=== PATIENT | female | born 2005 | race African-American/Black ===

== ENCOUNTER 2025-03-26 14:40 | Emergency (ER) | payer MEDICAID, OTHER ==
[~2025-03-26] VITALS: Ht 170.2 cm; Wt 98.1 kg
--- NOTE | 2025-03-26 15:18 | ED.PDOC ---
GI ASSESSMENT HPI Comments 19y F with current approximate 17 week who presents to the ED for chief complaint of abdominal pain. Pt states she is currently , , approx 17 weeks , and states she has been having right lower quadrant abdominal pain since yesterday with headache, nausea, vomiting and soft stools. Pt otherwise denies any associated vaginal bleeding or discharge. Pt [facility] and told is viable. Pt otherwise was not able to get OB appt until very recently due to insurance troubles but states insurance problems have been resolved and pt has since been able to get a OB appt that is upcoming. Pt in the ED, has noted BP of 143/86 with otherwise stable vitals including 02 sat of 99% on room air, RR 16, heart rate 90, and temp of 98.7 F. Pt otherwise denies any other symptoms at this time. Chief Complaint: Abdominal Pain Time Seen by MD: 15:17 Primary Care Provider: DENA Barton Notes: Medications, Allergies Allergies: Coded Allergies: NO KNOWN ALLERGIES (Unverified , 12/17/15) Home Meds Active Scripts Doxylamine-Pyridoxine (DICLEGIS) 1 Tab Tab, 1 TAB OR HS PRN, #30 TAB prn nausea/vomiting Prov:ROSEMARY DURON MD 03/26/25 Acetaminophen (Tylenol Extra Strength) 500 Mg Tab, 1000 MG PO Q6HP PRN, #30 TAB Prov:ROSEMARY DURON MD 03/26/25 Information Source: Patient, Significant Other Mode of Arrival: Ambulatory Past Medical History PAST MEDICAL HISTORY: Denies Surgical History: Denies all surgeries [employer] History: Other (Current approximate 17 week ) 1 Para 0 Family History Family History: Reviewed,noncontributory to illness Social History Smoker: Non-Smoker Alcohol: Denies ETOH Use Drugs: Denies Drug Use Lives In: Home All Other Systems: Reviewed and Negative (see HPI) Physical Exam General Appearance: No Apparent Distress HEENT: Other (Pupils and face symmetric. Moist mucous membranes.) Neck: Full Range of Motion, Normal Inspection Respiratory: Lungs Clear, No Accessory Muscle Use, No Respiratory Distress, No rmal Breath Sounds Cardiovascular: No Edema, No JVD, Regular Rate/Rhythm Breast Exam: Deferred Gastrointestinal: RLQ, Soft, Tenderness Genitalia: Deferred Pelvic: Deferred Rectal: Deferred Extremities: Normal inspection, Normal range of motion, Non-tender, No pedal edema Neurologic: Alert (Oriented x4), Normal Affect, Normal Mood, Other (Ambulatory) Cerebellar Function: NOT DONE Reflexes: NOT DONE Skin: Dry, Normal Color, Warm Lymphatic: NOT DONE Was a procedure done? Was a procedure done?: No GI differential Dx Differential Diagnosis: Appendicitis, Cholecystitis, Diverticular disease, Gastroenteritis, UTI, Dehydration, Electrolyte Imbalance, Food Poisoning, Bacterial, Viral, Anemia, Kidney Stone, Other ( related pain, demise, among others) X-Ray, Labs, Meds, VS Vital Signs Date Time Temp Pulse Resp B/P (MAP) Pulse Ox O2 Delivery O2 Flow Rate FiO2 03/26/25 20:47 97.9 81 20 123/73 (90) 99 97.9 03/26/25 14:42 98.7 90 16 143/86 99 98.7 Lab Test 03/26/25 20:26 03/26/25 16:40 Range/Units Urine Color Yellow Yellow Urine Clarity Turbid H Clear Urine pH 5.5 5.0-9.0 Urine Specific [place] 1.030 1.001-1.035 Urine Protein Trace H Negative Urine Ketones 4+ H Negative Urine Blood Negative Negative /uL Urine Nitrite Negative Negative Urine Bilirubin Negative Negative Urine Urobilinogen Normal Negative mg/dL Urine Leukocyte Esterase Negative Negative /uL Urine RBC <1 0 - 4 /hpf Urine Microscopic WBC 3 0-5 /HPF Urine Squamous Epithelial Cells Mod <5 /hpf Urine Bacteria None seen None Seen /hpf Urine Mucus Few None Seen Urine Glucose Normal Normal mg/dL White Blood Count 7.1 4.4-10.8 10^3/uL Red Blood Count 4.20 4.0-5.20 10^6/uL Hemoglobin 12.1 L 12.2-16.2 g/dL Hematocrit 36.6 36.0-46.0 % Mean Corpuscular Volume 87.2 80.0-100.0 fL Mean Corpuscular Hemoglobin 28.9 28.0-32.0 pg Mean Corpuscular Hemoglobin Concent 33.1 32.0-36.0 g/dL Red Cell Distribution Width 13.6 11.8-14.3 % Platelet Count 248 140-450 10^3/uL Mean Platelet Volume 8.4 6.9-10.8 fL Neutrophils (%) (Auto) 68.5 37.0-80.0 % Lymphocytes (%) (Auto) 21.3 10.0-50.0 % Monocytes (%) (Auto) 9.5 0.0-12.0 % Eosinophils (%) (Auto) 0.4 0.0-7.0 % Basophils (%) (Auto) 0.3 0.0-2.0 % Neutrophils # (Auto) 4.9 1.6-8.6 10 ^3/uL Lymphocytes # (Auto) 1.5 0.4-5.4 10 ^3/uL Monocytes # (Auto) 0.7 0-1.3 10 ^3/uL Eosinophils # (Auto) 0 0-0.8 10 ^3/uL Basophils # (Auto) 0 0-0.2 10 ^3/uL Nucleated Red Blood Cells 0.1 % Sodium Level 137 136-145 mmol/L Potassium Level 4.1 3.5-5.1 mmol/L Chloride Level 104 98-107 mmol/L Carbon Dioxide Level 23 20-31 mmol/L Anion Gap 10 5-15 Blood Urea Nitrogen 11 9-23 mg/dL Creatinine 0.56 0.550-1.02 mg/dL Glomerular Filtration Rate Calc 133 >90 mL/min BUN/Creatinine Ratio 19.6 10.0-20.0 Serum Glucose 79 74-106 mg/dL Lactic Acid Level 0.9 0.4-2.0 mmol/L Calcium Level 8.7 8.7-10.4 mg/dL Beta HCG, Quantitative 39663.4 H 1.5-4.2 mIU/mL [place] [address] Ph: [phone] DIAGNOSTIC IMAGING Diagnostic Imaging Report : [id number] Signed PATIENT: CHOLO RENEE ACCT: [id number] UNIT: [id number] : 2005 LOC: ER ROOM / BED: / AGE / SEX: 19 / F ADM STATUS: REG ER SERVICE 2068 ORDERING PHYSICIAN: ROSEMARY DURON MD PROCEDURE(s): RTLQD - RIGHT LOWER QUAD REASON: right LOWER quadrant pain eval for appy ORDER NUMBER(s): [id number], ACCESSION NUMBER(s): [id number] INDICATION: right LOWER quadrant pain eval for appy TECHNIQUE: Graded compression technique along with Multiple real-time sonographic images were obtained for evaluation of the right lower quadrant. FINDINGS: The appendix was not visualized. No free fluid or lymph nodes are seen on this exam. IMPRESSION: 1.Nonvisualization of the appendix, thus cannot exclude appendicitis. ATED BY: DYLAN MAHAN MD DICTATED DATE/TIME: 03/26/251921 SIGNED BY: DYLAN MAHAN MD SIGNED DATE/TIME: 03/26/251921 CC: [place] [address] Ph: [phone] DIAGNOSTIC IMAGING Diagnostic Imaging Report : [id number] Signed PATIENT: CHOLO RENEE ACCT: [id number] UNIT: [id number] : 2005 LOC: ER ROOM / BED: / AGE / SEX: 19 / F ADM STATUS: REG ER SERVICE 1528 ORDERING PHYSICIAN: ROSEMARY DURON MD PROCEDURE(s): ABDL - ABDOMEN LIMITED REASON: RLQ pain, 17 wk preg, n/v/d ORDER NUMBER(s): [id number], ACCESSION NUMBER(s): [id number] ULTRASOUND ABDOMEN, LIMITED RIGHT UPPER QUADRANT: REASON FOR EXAM: RLQ pain, 17 wk preg, n/v/d TECHNIQUE: Real-time sector scans in the transverse and longitudinal planes were obtained through the right upper quadrant of the abdomen. FINDINGS: The liver is of normal size and contour. There is hepatopetal flow in the portal vein. There is no intrahepatic nor extrahepatic biliary ductal dilatation. The common bile duct measures 5.9 mm. No gallstones or sludge are identified. There is no gallbladder wall thickening nor pericholecystic fluid. There is no sonographic Nathan's sign. The visualized portion of the pancreas is unremarkable. The right kidney measures 9.6 cm. No hydronephrosis or nephrolithiasis is identified. There is no evidence of right renal mass or cyst. The visualized portions of the abdominal aorta demonstrate no evidence of aneurysmal dilatation. The visualized inferior vena cava is unremarkable. There is no free fluid identified in the right upper quadrant. IMPRESSION: Unremarkable right upper quadrant abdominal ultrasound. ATED BY: SANCHEZ SEARS MD DICTATED DATE/TIME: 03/26/251620 SIGNED BY: SANCHEZ SEARS MD SIGNED DATE/TIME: 03/26/251620 CC: [place] [address] Ph: [phone] DIAGNOSTIC IMAGING Diagnostic Imaging Report : [id number] Signed PATIENT: CHOLO RENEE ACCT: [id number] UNIT: [id number] : 2005 LOC: ER ROOM / BED: / AGE / SEX: 19 / F ADM STATUS: REG ER SERVICE 1528 ORDERING PHYSICIAN: ROSEMARY DURON MD PROCEDURE(s): OBUS - OB ULTRASOUND COMP GTR 14 WKS REASON: RLQ pain, 17 wk preg ORDER NUMBER(s): [id number], ACCESSION NUMBER(s): [id number] SECON[facility] TRIME[facility] OBSTETRICAL ULTRASOUND HISTORY: RLQ pain, 17 wk preg. HAYDEE 08/28/2025. Gestational age by HAYDEE 17 weeks 6 days. . Abdominal pain. Right lower quadrant pain. COMPARISON: None TECHNIQUE: Transabdominal imaging of the pelvis. FINDINGS: DATING: Ultrasound (based on AC, BPD, femur, HC): 18 weeks + 0 days. HAYDEE: 08/27/2025 : [place] . MATERNAL STRUCTURES: Uterus: Unremarkable. Cervix: 3.0 cm closed without funneling Right ovary: Not seen Left ovary: Not seen BIOMETRY: BPD: 4.18 cm. 18 weeks + 5 days HC: 14.79 cm. 17 weeks + 6 days AC: 11.26 cm. 17 weeks + 1 days FL: 2.67 cm. 18 weeks + 1 days WEIGHT CALCULATION: Calculated by [facility] (BPD, HC, AC, FL) EFW: 203.8 grams. PROPORTIONALITY RATIOS: CI: 83.46 (normal range 70.00-86.00) HC/AC: 1.31 (normal range 1.08-1.27) FL/AC: 23.75 GENERAL EVALUATION: Cardiac activity: 151 beats per minute movements: Present. Presentation: Cephalic. Placenta: Posterior and fundal Umbilical cord: 3-vessel Cord insertion: Central. Amniotic fluid: Visually normal IMPRESSION: [place] intrauterine measuring 18 weeks + 0 days. heart rate 151 bpm. No abnormality identified. ATED BY: SANCHEZ SEARS MD DICTATED DATE/TIME: 03/26/251627 SIGNED BY: SANCHEZ SEARS MD SIGNED DATE/TIME: 03/26/251627 CC: PROCEDURE(s): RTLQD - RIGHT LOWER QUAD REASON: right LOWER quadrant pain eval for appy ORDER NUMBER(s): [id number], ACCESSION NUMBER(s): [id number] INDICATION: right LOWER quadrant pain eval for appy TECHNIQUE: Graded compression technique along with Multiple real-time sonographic images were obtained for evaluation of the right lower quadrant. FINDINGS: The appendix was not visualized. No free fluid or lymph nodes are seen on this exam. IMPRESSION: 1.Nonvisualization of the appendix, thus cannot exclude appendicitis. X-Ray, Labs, Meds, VS Comment 19-year-old female with current 17 week complaining of right lower quadrant pain, nausea and vomiting Vitals remarkable for BP 143/86 Exam remarkable for right lower quadrant tenderness to palpation Rhythm strip independently interpreted by me: Sinus rhythm, rate 90, no ectopy. Right upper quadrant and right lower quadrant ultrasounds unremarkable Ob ultrasound IMPRESSION: [place] intrauterine measuring 18 weeks + 0 days. heart rate 151 bpm. No abnormality identified. CBC, basic metabolic panel and lactate unremarkable. Serum quantitative hCG 76448.4. UA abnormal but not consistent with infection. Patient treated with the following in the ED: 1 L 0.9 normal saline IV bolus, Zofran 4 mg IV, Tylenol 1 g p.o. On re-evaluation, patient is resting comfortably with stable vitals. Patient appears stable for discharge with close outpatient follow-up with an OBGYN. Patient will be referred to Dr. Tilley. Rx Caleb Julian, Time of 1ST Reevaluation: 20:01 Reevaluation 1ST: Improved Patient Education/Counseling: Diagnosis, Treatment Family Education/Counseling: Diagnosis, Treatment SEPSIS Sepsis Screen Date sepsis recognized/suspect: Mar 26, 2025 Time Sepsis recognized/suspect: 1444 Recent Procedure: No On Antibiotic Therapy: No Respiratory Rate >20: No Heart Rate >90: No Temp<36 C (96.8 F) or >38.3 C: No SBP <90 or MAP <65 mmHG: No New Acute Mental Status Change: No Is the patient on CPAP, BIPAP,: No Physician Orders Blood Culture (03/26/25 15:28) Abdomen Limited (03/26/25 15:28) Ob Ultrasound Comp Gtr 14 Wks (03/26/25 15:28) Right Lower Quad (03/26/25 17:28) Communication Order (03/26/25 20:00) Vital Signs Date Time Temp Pulse Resp B/P (MAP) Pulse Ox O2 Delivery O2 Flow Rate FiO2 03/26/25 20:47 97.9 81 20 123/73 (90) 99 97.9 03/26/25 14:42 98.7 90 16 143/86 99 98.7 Laboratory Tests Test 03/26/25 16:40 Lactic Acid Level 0.9 mmol/L (0.4-2.0) White Blood Count 7.1 10^3/uL (4.4-10.8) Departure 1 Departure Time of Disposition: 20:00 Impression: Primary Impression: Abdominal pain in early Disposition: HOME / SELF CARE / HOMELESS Condition: Stable Referrals: KYLE TILLEY DO Additional Instructions: Your blood and urine tests were unremarkable. Your ultrasounds were unremarkable. I have enclosed your Ob ultrasound below. Follow-up to establish care with an OBGYN in 1-2 days. You have been referred to Dr. Tilley. I have prescribed medication for pain and nausea. Return to ER for persistent or worsening symptoms. [place] [address] Ph: [phone] DIAGNOSTIC IMAGING Diagnostic Imaging Report : [id number] Signed PATIENT: CHOLO RENEE ACCT: [id number] UNIT: [id number] : 2005 LOC: ER ROOM / BED: / AGE / SEX: 19 / F ADM STATUS: REG ER SERVICE 1528 ORDERING PHYSICIAN: ROSEMARY DURON MD PROCEDURE(s): OBUS - OB ULTRASOUND COMP GTR 14 WKS REASON: RLQ pain, 17 wk preg ORDER NUMBER(s): [id number], ACCESSION NUMBER(s): [id number] [facility] OBSTETRICAL ULTRASOUND HISTORY: RLQ pain, 17 wk preg. HAYDEE 08/28/2025. Gestational age by HAYDEE 17 weeks 6 days. . Abdominal pain. Right lower quadrant pain. COMPARISON: None TECHNIQUE: Transabdominal imaging of the pelvis. FINDINGS: DATING: Ultrasound (based on AC, BPD, femur, HC): 18 weeks + 0 days. HAYDEE: 08/27/2025 : [place] . MATERNAL STRUCTURES: Uterus: Unremarkable. Cervix: 3.0 cm closed without funneling Right ovary: Not seen Left ovary: Not seen BIOMETRY: BPD: 4.18 cm. 18 weeks + 5 days HC: 14.79 cm. 17 weeks + 6 days AC: 11.26 cm. 17 weeks + 1 days FL: 2.67 cm. 18 weeks + 1 days WEIGHT CALCULATION: Calculated by [facility] (BPD, HC, AC, FL) EFW: 203.8 grams. PROPORTIONALITY RATIOS: CI: 83.46 (normal range 70.00-86.00) HC/AC: 1.31 (normal range 1.08-1.27) FL/AC: 23.75 GENERAL EVALUATION: Cardiac activity: 151 beats per minute movements: Present. Presentation: Cephalic. Placenta: Posterior and fundal Umbilical cord: 3-vessel Cord insertion: Central. Amniotic fluid: Visually normal IMPRESSION: [place] intrauterine measuring 18 weeks + 0 days. heart rate 151 bpm. No abnormality identified. e-Prescriptions Doxylamine-Pyridoxine (DICLEGIS) 1 Tab Tab 1 TAB OR HS PRN, #30 TAB prn nausea/vomiting Prov: ROSEMARY DURON MD 03/26/25 Acetaminophen (Tylenol Extra Strength) 500 Mg Tab 1000 MG PO Q6HP PRN, #30 TAB Prov: ROSEMARY DURON MD 03/26/25 Discharged With: Significant Other Critical Care Note Critical Care Time?: No Stability Stability form required: No Heart Score Heart Score: Heart Score Response (Comments) Value History N/A 0 EKG N/A 0 Age N/A 0 Risk Factors N/A 0 Troponin N/A 0 Total 0 I personally scribed for ROSEMARY DURON MD (DORIAN) on 03/26/25 at 15:18. Electronically submitted by Gurmeet Harrison ([facility] I personally scribed for ROSEMARY DURON MD (DORIAN) on 03/26/25 at 16:31. Electronically submitted by Gurmeet Harrison ([facility] I personally scribed for ROSEMARY DURON MD (DORIAN) on 03/26/25 at 16:31. Electronically submitted by Gurmeet Harrison ([facility] I personally scribed for ROSEMARY DURON MD (DORIAN) on 03/26/25 at 16:39. Electronically submitted by Gurmeet Harrison ([facility] I personally scribed for ROSEMARY DRUON MD (DORIAN) on 03/26/25 at 20:23. Electronically submitted by Gurmeet Harrison ([facility]). ROSEMARY DURON MD Mar 26, 2025 15:18
[2025-03-26] MEDS: ONDANSETRON HCL 4 MG/2 ML VIAL IV ONE (15:30)
[2025-03-26] MEDS: SODIUM CHLORIDE 0.9% 1,000 ML IV ONE (15:30)
--- NOTE | 2025-03-26 16:23 | DVH ---
ULTRASOUND ABDOMEN, LIMITED RIGHT UPPER QUADRANT: REASON FOR EXAM: RLQ pain, 17 wk preg, n/v/d TECHNIQUE: Real-time sector scans in the transverse and longitudinal planes were obtained through th e right upper quadrant of the abdomen. FINDINGS: The liver is of normal size and contour. There is hepatopetal flow in the portal vein. Th ere is no intrahepatic nor extrahepatic biliary ductal dilatation. The common bile duct measures 5.9 mm. No gallstones or sludge are identified. There is no gallbladder wall thickening nor pericholec ystic fluid. There is no sonographic Nathan's sign. The visualized portion of the pancreas is unremarkable. The right kidney measures 9.6 cm. No hydronephrosis or nephrolithiasis is identified. There is no e vidence of right renal mass or cyst. The visualized portions of the abdominal aorta demonstrate no evidence of aneurysmal dilatation. The visualized inferior vena cava is unremarkable. There is no free fluid identified in the right upper quadrant. IMPRESSION: Unremarkable right upper quadrant abdominal ultrasound.
--- NOTE | 2025-03-26 16:31 | DVH ---
SECON[facility] TRIMESTER OBSTETRICAL ULTRASOUND HISTORY: RLQ pain, 17 wk preg. HAYDEE 08/28/2025. Gestational age by HAYDEE 17 weeks 6 days. . Abdomin al pain. Right lower quadrant pain. COMPARISON: None TECHNIQUE: Transabdominal imaging of the pelvis. FINDINGS: DATING: Ultrasound (based on AC, BPD, femur, HC): 18 weeks + 0 days. HAYDEE: 08/27/2025 : [place] . MATERNAL STRUCTURES: Uterus: Unremarkable. Cervix: 3.0 cm closed without funneling Right ovary: Not seen Left ovary: Not seen BIOMETRY: BPD: 4.18 cm. 18 weeks + 5 days HC: 14.79 cm. 17 weeks + 6 days AC: 11.26 cm. 17 weeks + 1 days FL: 2.67 cm. 18 weeks + 1 days WEIGHT CALCULATION: Calculated by [facility] (BPD, HC, AC, FL) EFW: 203.8 grams. PROPORTIONALITY RATIOS: CI: 83.46 (normal range 70.00-86.00) HC/AC: 1.31 (normal range 1.08-1.27) FL/AC: 23.75 GENERAL EVALUATION: Cardiac activity: 151 beats per minute movements: Present. Presentation: Cephalic. Placenta: Posterior and fundal Umbilical cord: 3-vessel Cord insertion: Central. Amniotic fluid: Visually normal IMPRESSION: [place] intrauterine measuring 18 weeks + 0 days. heart rate 151 bpm. No abnormality identified.
[2025-03-26 17:04] LABS: Hematocrit 36.6 % (36.0-46.0); Hemoglobin 12.1 g/dL (12.2-16.2); Mean Corpuscular Hemoglobin 28.9 pg (28.0-32.0); Mean Corpuscular Volume 87.2 fL (80.0-100.0); Nucleated Red Blood Cells % 0.1 %
[2025-03-26 17:08] LABS: Chloride 104 mmol/L (98-107); Potassium 4.1 mmol/L (3.5-5.1); Sodium 137 mmol/L (136-145)
[2025-03-26 17:09] LABS: Anion Gap 10 (5-15); Carbon Dioxide 23 mmol/L (20-31)
[2025-03-26 17:10] LABS: Calcium 8.7 mg/dL (8.7-10.4)
[2025-03-26 17:14] LABS: BUN/Creatinine Ratio 19.6 (10.0-20.0); Blood Urea Nitrogen 11 mg/dL (9-23); Glucose 79 mg/dL (74-106)
--- NOTE | 2025-03-26 19:24 | DVH ---
INDICATION: right LOWER quadrant pain eval for appy TECHNIQUE: Graded compression technique along with Multiple real-time sonographic images were obtain ed for evaluation of the right lower quadrant. FINDINGS: The appendix was not visualized. No free fluid or lymph nodes are seen on this exam. IMPRESSION: 1.Nonvisualization of the appendix, thus cannot exclude appendicitis.
[2025-03-26] MEDS: ACETAMINOPHEN 500 MG TAB or CAP PO ONE (20:00)
[2025-03-26] MEDS ORDERED: ACET-1304 PO (20:04)
[2025-03-26] MEDS ORDERED: DOXY10TA OR (20:04)
[2025-03-26 21:14] LABS: Urine Protein, UAD TRACE (Negative)
[2025-03-27 00:22] VITALS: BP 119/53; RESP 20; TEMP 98.4
[2025-03-27 00:28] VITALS: PULSE 104; O2SAT 100
== END 2025-03-27 00:28 | disposition home or self-care (01) ==
LOC: ER 14:40
DX: O20.0 Threatened abortion (principal); O21.9 Vomiting of pregnancy, unspecified; Z3A.18 18 weeks gestation of pregnancy
CPT/HCPCS: 36415; 76705; 76805; 80048; 81001; 83605; 84702; 85025; 87040